=== PATIENT | male | born 1950 | race Caucasian/White ===

== ENCOUNTER → 2019-06-06 | Outpatient (CLI) | payer MEDICARE, BC | LOC: COL.RAD 13:29 | DX: M51.36 Other intervertebral disc degeneration, lumbar region (principal); I70.219 Atherosclerosis of native arteries of extremities with intermittent claudication, unspecified extremity; M48.061 Spinal stenosis, lumbar region without neurogenic claudication; Z98.1 Arthrodesis status | CPT/HCPCS: A9585; Q9967 ==

== ENCOUNTER 2019-07-26 08:07 | Inpatient (IN) | payer MEDICARE, BC ==
[~2019-07-26] VITALS: Ht 172.7 cm; Wt 55.3 kg
[2019-07-26 09:03] LABS: MEAN CELL VOLUME 73 fl (80.0-100.0); MEAN CORPUSCULAR HGB CONC 33 g/dl (33.0-37.0); MEAN PLATELET VOLUME 9.9 fl (7.4-10.4); PLATELET COUNT 163 K/mm3 (130-400); REDCELL DISTRIBUTION WIDTH-CV 17.1 % (11.5-14.5)
[2019-07-26 09:04] LABS: INR 1.1 (0.8-3.0); PROTHROMBIN TIME 12.6 SECONDS (9.7-12.8)
[2019-07-26 09:13] LABS: HEMATOCRIT 23.4 % (42.0-52.0); HEMOGLOBIN 7.8 g/dl (13.5-18.0); MEAN CORPUSCULAR HEMOGLOBIN 24 pg (27.0-31.0)
[2019-07-26 09:24] LABS: ALBUMIN 3.2 gm/dL (3.5-5.0); BILIRUBIN,TOTAL 1.8 mg/dL (0.0-1.0); CALCIUM 8.2 mg/dL (8.4-10.2); CREATININE, serum 0.66 (0.66-1.25); POTASSIUM 3.5 mmol/L (3.4-5.0); TOTAL PROTEIN 6.2 gm/dL (6.4-8.2)
[2019-07-26 09:35] LABS: C-REACTIVE PROTEIN 23.9 mg/dL (0.0-0.9)
[2019-07-26 09:56] LABS: COLLECTION METHOD CLEAN CATCH
[2019-07-26 10:12] LABS: MUCOUS Present /lpf; PH 6 (5-8); SQUAMOUS EPITHELIAL 0-2 /hpf; URINE APPEARANCE Hazy; URINE BACTERIA None Seen /hpf; URINE BILIRUBIN Negative (NEGATIVE); URINE BLOOD Negative (NEGATIVE); URINE COLOR Amber; URINE GLUCOSE Negative (NEGATIVE); URINE KETONE Trace (NEGATIVE); URINE LEUKOCYTE ESTERASE Negative (NEGATIVE); URINE NITRATE Negative (NEGATIVE); URINE PROTEIN(semi-quant) 2+ (NEGATIVE)
[2019-07-26 10:30] LABS: ANISOCYTOSIS 2+; BAND 3 % (0-10); DOHLE BODIES PRESENT; HYPOCHROMIA 2+; LYMPHOCYTE 4 % (20.0-51.0); NEUTROPHILS 87 % (42.0-75.2); PLATELET ESTIMATE NORMAL (NORMAL); POIKILOCYTOSIS 2+; TOXIC GRANULATION PRESENT
[2019-07-26] MEDS ORDERED: NORCO 325 MG-7.1 TAB PO (11:00)
[2019-07-26] MEDS ORDERED: ULTRAM 50MG TAB50 MG PO (11:01)
[2019-07-26] MEDS ORDERED: NEURONTIN800 MG/TAB PO (11:01)
[2019-07-26] MEDS ORDERED: TENORMIN 5050 MG/TAB PO (11:02)
[2019-07-26] MEDS ORDERED: LIPITOR 80MG80 MG PO (11:02)
[2019-07-26] MEDS ORDERED: LIDODERM 5% PATC1 EA TP (11:02)
[2019-07-26] MEDS ORDERED: NORVASC 5MG5 MG/TAB PO (15:07)
[2019-07-26] MEDS ORDERED: ASPIRIN E.C. 8181 MG PO (15:10)
[2019-07-26] MEDS ORDERED: FLEXERIL 1010 MG/TAB PO (15:10)
[2019-07-26] MEDS ORDERED: PLAVIX 75MG TAB75 MG PO (15:12)
[2019-07-26] MEDS ORDERED: PROAIR HFA0.09 MG/AC IH (15:12)
[2019-07-26] MEDS ORDERED: VOLTAREN GEL 1%1 TU TP (15:13)
[2019-07-26 16:29] VITALS: BP 130/67; PULSE 97; TEMP 101.9
--- NOTE | 2019-07-26 17:05 | NUR ---
Vancomycin Initial Dosing Pharmacy Note Ordering provider: Phuong Londono MD Indication/duration: Possible septic emboli LABS: serum creatinine = 0.66, estimated CrCL of 70 ml/min Recommendation: Will follow cultures, daily labs for renal function and trough levels Loading dose: 1 gram Maintenance dose: 1 gram every 8 hours Trough goal: 15-20 ug/mL
[2019-07-26 18:10] LABS: IRON,SERUM 11 ug/dL (35-150)
[2019-07-26 18:20] LABS: TOTAL IRON BINDING CAPACITY 304 ug/dL (261-462)
[2019-07-26 18:46] LABS: FERRITIN 84 ng/mL (18-464)
--- NOTE | 2019-07-26 18:47 | NUR ---
Admission assessment completed, alert/oriented, vitals signs stable/ patientis running intermittent fever 101.9 is the latest, WBC 23, on Vanco and Cefepime, lungs CTA/ diminished, patient does report feeling short of breath as of recent, on a couple liters of oxygen for comfrot, O2 sats WNL on room air however, heart RRR/ pedal pulses are palpable with doppler only, patient has history of PAD and recently had attmepted procecure to revasularize left leg that was unsucessfull, pain in BLE has been increasing and now to the point decided to bring him to the hospital, patient has been losing weight and has poor appetie, he is weak and unsteady on his feet, I have updated home meds/allergies/pharmacy info, notified hospitalist of arrival and orders placed, plan of care discussed with patient an family who veralized understanding
--- NOTE | 2019-07-26 19:30 | NUR ---
CALLED DR. FOWLER IN REFERENCE TO PT'S REQUEST FOR BENADRYL SLEEP AID. RECEIVED ORDERS FOR BENADRYL 50 MG PO QHS PRN.
--- NOTE | 2019-07-26 19:57 | NUR ---
PT IN BED WITH HOB AT 45 DEGREE ANGLE. PT HAS AT BEDSIDE. PT HAS +1 EDEMA IN LEFT FOOT. PT ADVISES THAT PT IS TOLERABLE AT 4/10 BUT IS ACHY, FEELS LIKE IT IS THE MUSCLES. PT GIVEN BENADRYL REQUESTED, NO FURTHER NEEDS AT THIS TIME. CALL LIGHT WITHIN REACH.
[2019-07-26 23:13] VITALS: BP 121/46; PULSE 94; TEMP 99.6
--- NOTE | 2019-07-27 05:17 | NUR ---
PT HAS BEEN RESTING IN BED AND REPOSITIONING SELF. PT ADVISES THAT HE CONTINUES TO HAVE LEG PAIN. GAVE NORCO AND PT ADVISES LONG HE STAYS STILL HE DOES NOT HAVE PAIN. PT WAS ADVISED THAT HE IS NPO. PT'S LABS CAME BACK WITH STAPHYLOCOCCUS AUREUS. ADVISED DR. FOWLER AND NO NEW ORDERS GIVEN. PT HAS NO FURTHER NEEDS, CALL LIGHT WITHIN REACH.
[2019-07-27 07:58] LABS: MEAN CELL VOLUME 73 fl (80.0-100.0); MEAN CORPUSCULAR HGB CONC 34 g/dl (33.0-37.0); MEAN PLATELET VOLUME 10.8 fl (7.4-10.4); PLATELET COUNT 168 K/mm3 (130-400); RED BLOOD COUNT 3.39 M/mm3 (4.20-5.60); REDCELL DISTRIBUTION WIDTH-CV 17.6 % (11.5-14.5)
[2019-07-27 08:06] LABS: ALBUMIN 2.9 gm/dL (3.5-5.0); BILIRUBIN,TOTAL 2.7 mg/dL (0.0-1.0); CALCIUM 7.9 mg/dL (8.4-10.2); CREATININE, serum 0.66 (0.66-1.25); POTASSIUM 3.6 mmol/L (3.4-5.0); TOTAL PROTEIN 5.9 gm/dL (6.4-8.2)
[2019-07-27 08:08] LABS: HEMATOCRIT 24.7 % (42.0-52.0); HEMOGLOBIN 8.3 g/dl (13.5-18.0); MEAN CORPUSCULAR HEMOGLOBIN 24 pg (27.0-31.0)
[2019-07-27 08:24] VITALS: BP 128/59; PULSE 58; TEMP 98.1
[2019-07-27 08:24] LABS: ANISOCYTOSIS 1+; BAND 9 % (0-10); HYPOCHROMIA 2+; LYMPHOCYTE 1 % (20.0-51.0); METAMYELOCYTE 2 % (0-0); MICROCYTOSIS 1+; NEUTROPHILS 85 % (42.0-75.2); PLATELET ESTIMATE NORMAL (NORMAL)
[2019-07-27 08:25] LABS: BURR CELLS 1+; OVALOCYTES 1+; POIKILOCYTOSIS 2+; SCHISTOCYTES 1+; TARGET CELLS 1+
[2019-07-27 08:26] LABS: HELMET CELLS 1+
[2019-07-27 09:21] LABS: INR 1.3 (0.8-3.0); PROTHROMBIN TIME 15.4 SECONDS (9.7-12.8)
--- NOTE | 2019-07-27 09:31 | NUR ---
SW met with the patient, patient's (Chaparrita #[phone]), and his oldest son (Moses) to discuss discharge plan. The patient lives in [place] with his . He reports independence with ADLs and has a cane, walker, and wheelchair. He states that it has been getting harder for him to get around lately and that he has started using the walker and wheelchair more often. The patient's PCP is Dr. Hermes Acuna and he receives his medications at the [facility]. He reports no difficulties obtaining his meds. The patient does not have advanced directives in EMR, but he states that he does have a DPOA-HC completed. He states that he believes he designated his first and then his three children. SW asked the patient's if she could bring a copy of the DPOA-HC to the hospital. At this time, the patient plans to return back home upon discharge. PT/OT have been ordered. SW to continue to follow.
--- NOTE | 2019-07-27 09:54 | NUR ---
Assessment completed, alert/oriented, vital signs stable/ intermittent fevers, patient continues to have significant pain 07/24 and is reporting the Morphine is not helping very much or even at all, his WBC is up to 36 today and overall he is feeling worse, B/C + for staph, heart RRR/ scheduled for ADELA Today, lungs CTA, I have notified the hospitalist of his condition and they have seen him first this morning, starting him on IVF and increaseing Morphine dosing, family present in the room and will continue to monitor
--- NOTE | 2019-07-27 10:07 | NUR ---
Initial visit; Patient thanked Developer Analyst for looking in on him and offering god's blessings.
[2019-07-27 10:50] LABS: RETIC # 0.02 M/mm3 (0.02-0.16); RETIC % 0.7 % (0.5-3.52)
[2019-07-27 12:01] VITALS: BP 111/49; PULSE 83; TEMP 97.9
[2019-07-27 17:39] VITALS: BP 141/98; PULSE 83; TEMP 98.2
--- NOTE | 2019-07-27 20:00 | NUR ---
RECEIVED CALL FROM RADIOLOGY THAT THEY WERE GOING TO BE UP ABOUT 1929 TO TAKE PT DOWN FOR MILOGRAM. GAVE PT MORPHINE 2MG IV AT 193 FOR PAIN. PT WAS TAKEN DOWN TO CT BY STRETCHER. PT WAS IN SEVERE PAIN INSPITE OF PAIN MEDICATION GIVEN. PT LEFT ABOUT 1949.
--- NOTE | 2019-07-27 22:16 | NUR ---
RECEIVED CALL FROM DR. MOSELEY AND RECEIVED ORDERS TO INCREASE NORMAL SALINE FROM 125ML/HR TO 150ML/HR.
[2019-07-28] VITALS (14 sets, daily range): BP systolic 111–166; BP diastolic 50–77; PULSE 76–91; TEMP 97.5–98.9
--- NOTE | 2019-07-28 03:16 | NUR ---
CALLED DR. BARRY IN REFERENCE TO LAB RESULTS ON BLOOD CULTURES FROM ANAROBIC BOTTLE RETURNED THE SAME WITH STAPH AURIOUS POSITIVE, BUT LAB DID NOT THINK IT WAS MRSA. NO NEW ORDERS GIVEN SINCE PATIENT IS ALREADY GETTING VANCOMYCIN.
--- NOTE | 2019-07-28 06:10 | NUR ---
PT [facility] WAS WAITING FOR PT TO COME BACK AND WHEN HE GOT BACK HE THOUGHT THAT THERE WAS A BODY ON THE CEILING. PT DID SLEEP BETTER THIS NIGHT, BUT DID CATCH PT GETTING BACK INTO BED. PT DENIED GETTING UP ON HIS OWN. PT HAD URINE STAINS ON HIS UNDERWEAR. CHANGED PT'S BED AND PUT A CLEAN BRIEF ON PT AND PUT THE BED ALARM ON. PT ONLY C/O PAIN WHEN MOVING. NO NEEDS AT THIS TIME, CALL LIGHT WITHIN REACH AND BED ALARM ON.
[2019-07-28 07:15] LABS: MEAN CELL VOLUME 73 fl (80.0-100.0); MEAN CORPUSCULAR HGB CONC 33 g/dl (33.0-37.0); MEAN PLATELET VOLUME 11.4 fl (7.4-10.4); PLATELET COUNT 239 K/mm3 (130-400); RED BLOOD COUNT 3.26 M/mm3 (4.20-5.60); REDCELL DISTRIBUTION WIDTH-CV 17.7 % (11.5-14.5)
[2019-07-28 07:27] LABS: ALBUMIN 2.8 gm/dL (3.5-5.0); BILIRUBIN,TOTAL 2.7 mg/dL (0.0-1.0); CALCIUM 7.5 mg/dL (8.4-10.2); CREATININE, serum 1.09 (0.66-1.25); TOTAL PROTEIN 5.7 gm/dL (6.4-8.2)
[2019-07-28 07:39] LABS: HEMATOCRIT 23.9 % (42.0-52.0); HEMOGLOBIN 7.9 g/dl (13.5-18.0); MEAN CORPUSCULAR HEMOGLOBIN 24 pg (27.0-31.0)
[2019-07-28 07:41] LABS: POTASSIUM 3.7 mmol/L (3.4-5.0)
[2019-07-28 08:06] LABS: ANISOCYTOSIS 1+; BAND 2 % (0-10); LYMPHOCYTE 2 % (20.0-51.0); MICROCYTOSIS 1+; NEUTROPHILS 90 % (42.0-75.2); PLATELET ESTIMATE NORMAL (NORMAL)
[2019-07-28 08:07] LABS: BURR CELLS 1+; HYPOCHROMIA 1+; POIKILOCYTOSIS 2+; SPHEROCYTE 1+
[2019-07-28 08:08] LABS: OVALOCYTES 1+; SCHISTOCYTES 1+
--- NOTE | 2019-07-28 11:00 | NUR ---
At shift change this am patient was only able to void 150ml of urine. When assessing patient he stated he could not move his legs or his toes. Was told in shift report patient was getting up on his own and had been voiding without using a urinal. Patients abdomen was distended so we bladder scanned patient. It showed more than 999ml. Glass catheter placed at this time. Victoria colored urine returned. Catheter stat-lock placed to right thigh. 10ml of saline placed to catheter balloon. Tereza-care completed. Discussed plan of care with patient and family. Patient is partially oriented. He is not able to answer all orientation questions appropraitely. Denies nausea. Stated only having pain when moved. He is comfortable as long as he is sitting still. No other changes at this time. Call light within reach.
--- NOTE | 2019-07-28 11:36 | NUR ---
Family was present. I provided spiritual care and prayed with them.
--- NOTE | 2019-07-28 11:40 | NUR ---
Vancomycin Follow-up Pharmacy Note Current regimen: Vancomycin 1 gm IV q8h Vancomycin trough: 25.4 Adjustments: Hold Vancomycin for additional 8 hours, then Vancomycin 1 gm IV q12h. Pharmacy will continue to monitor serum creatinine and Vancomycin trough levels.
--- NOTE | 2019-07-28 17:00 | NUR ---
Patient was been doing ok this afternoon. He went down for his MRI. He was given anesthesia to complete the MRI. Patient is alert, he is not able to answer more than yes or no questions. He is drowsy at this time as well. Explained to family it is normal for this to happen with the anesthesia. IVF's restarted. No other changes at this time. Call light within reach.
--- NOTE | 2019-07-28 19:00 | NUR ---
Patient is transferring to [facility]. Report called by this nurse. Initially had called consult to Shefali ARROYO from [facility]. Let him know the patient is being transferred. Patients family is aware that he is being moved. No other changes at this time. Info packet is ready for EMS. Patient continues to be drowsy at this time.
--- NOTE | 2019-07-28 19:52 | NUR ---
EMS CAME TO TRANSPORT PATIENT. PT WAS ALERT AND TALKING, GAVE 2 MG OF MORPHINE IV. TELEMETRY TAKEN OFF OF PATIENT. PT LEFT WITH IV FLUIDS RUNNING. PATIENT'S TOOK PERSONAL BELONGS FROM ROOM. CALLED FAVIAN WATSON AT [phone] AND SPOKE TO PATIENT'S NURSE ENEIDA BARNETT AND GAVE REPORT AND TIME PATIENT DEPARTED. PATIENT DEPARTED WITH EMS [facility]IA [facility] AT 1945.
== END 2019-07-28 19:45 | disposition short-term general hospital (02) | DRG 872 ==
LOC: COL.ER 08:07 → MEDICAL 11:18
PROVIDERS: Emergency Medicine; Physician Assistant; ADMIT Family Medicine
DX: A41.01 Sepsis due to Methicillin susceptible Staphylococcus aureus (principal); G82.20 Paraplegia, unspecified; E87.1 Hypo-osmolality and hyponatremia; G95.20 Unspecified cord compression; A41.9 Sepsis, unspecified organism; I73.9 Peripheral vascular disease, unspecified; I10 Essential (primary) hypertension; E78.1 Pure hyperglyceridemia; F17.210 Nicotine dependence, cigarettes, uncomplicated; G89.29 Other chronic pain; M54.9 Dorsalgia, unspecified; D50.9 Iron deficiency anemia, unspecified; R74.8 Abnormal levels of other serum enzymes; J44.9 Chronic obstructive pulmonary disease, unspecified; M48.061 Spinal stenosis, lumbar region without neurogenic claudication; Z90.2 Acquired absence of lung [part of]; Z79.82 Long term (current) use of aspirin; Z79.02 Long term (current) use of antithrombotics/antiplatelets; Z95.828 Presence of other vascular implants and grafts; Z99.3 Dependence on wheelchair; K80.20 Calculus of gallbladder without cholecystitis without obstruction; R33.9 Retention of urine, unspecified
CPT/HCPCS: A4216; A9585; J0692; J1650; J2250; J2270; J2543; J2704; J3370; J7030; J7040; J7050; Q9967